=== PATIENT | male | born 1955 | race Caucasian/White ===

== ENCOUNTER 2019-01-22 08:48 | Day surgery (SDC) | payer OTHER ==
--- NOTE | 2019-01-22 08:02 | PCM.PREANE ---
Preanesthetic Assessment - Anesthesia/Transfusion/Family Hx Anesthesia History: Prior Anesthesia Without Reaction Family History of Anesthesia Reaction: No Transfusion History: No Prior Transfusion(s) Intubation History: Unknown - Review of Systems General: No Symptoms Pulmonary: No Symptoms (Quit smoking in 1999) Cardiovascular: No Symptoms Gastrointestinal: No Symptoms Neurological: No Symptoms, Tingling (bilateral hands: bulging cervical disks noted per patient.) Other: Reports: None, Neck Pain - Physical Assessment NPO Status Date: 01/21/19 NPO Status Time: 21:00 Pulse: 72 O2 Sat by Pulse Oximetry: 97 Respiratory Rate: 16 Blood Pressure: 158/89 Temperature: 36.6 C Height: 1.75 m Weight: 107.955 kg ASA Class: 2 Mental Status: Alert & Oriented x3 Airway Class: Mallampati = 2 Dentition: Reports: Normal Dentition, Caries Thyro-Mental Finger Breadths: 3 Mouth Opening Finger Breadths: 3 ROM/Head Extension: Full Lungs: Clear to Auscultation, Normal Respiratory Effort Cardiovascular: Regular Rate, Regular Rhythm, No Murmurs - Lab Values: MRSA: negative All labs reviewed and noted and within acceptable ranges to proceed with scheduled surgery. - Imaging/EKG Impressions: CXR: unremarkable EKG:SR rate= 72 - Allergies Allergies/Adverse Reactions: Allergies Allergy/AdvReac Type Severity Reaction Status Date / Time naproxen [From Aleve] Allergy Facial Verified 01/19/19 12:57 Swelling - Anesthesia Plan Pre-Op Medication Ordered: None - Acknowledgements Anesthesia Type Planned: General Anesthesia (left interscalene block under us guidance for post operative pain control requested by Dr. Yoo) Pt an Appropriate Candidate for the Planned Anesthesia: Yes Alternatives and Risks of Anesthesia Discussed w Pt/Guardian: Yes Pt/Guardian Understands and Agrees with Anesthesia Plan: Yes PreAnesthesia Questionnaire HEENT History: Reports: Impaired Vision, Other (See Below) Other HEENT History: wears contacts Cardiovascular History: Reports: High Cholesterol Respiratory History: Reports: None Genitourinary History: Reports: None [employer]PA[employer]ERS History: Reports: None Neurological History: Reports: None Psychiatric History: Reports: None Endocrine/Metabolic History: Reports: None Hematologic History: Reports: None Immunologic History: Reports: None Oncologic (Cancer) History: Reports: None Dermatologic History: Reports: None - Past Surgical History Head Surgeries/Procedures: Reports: None Cardiovascular Surgical History: Reports: None Respiratory Surgical History: Reports: None GI Surgical History: Reports: Colonoscopy, Hernia Repair/Other Female Surgical History: Reports: None Male Surgical History: Reports: None Endocrine Surgical History: Reports: None Neurological Surgical History: Reports: Other (See Below) Other Neurological Surgeries/Procedures: back surgery x4 Musculoskeletal Surgical History: Reports: Shoulder Surgery Oncologic Surgical History: Reports: None Dermatological Surgical History: Reports: None - SUBSTANCE USE Smoking Status *Q: Former Smoker Recreational Drug Use History: No - HOME MEDS Home Medications: Home Meds Acetaminophen [Tylenol] 650 mg PO Q4H PRN 01/19/19 [History] Aspirin [Halfprin] 81 mg PO DAILY 01/19/19 [History] atorvaSTATin Calcium [Atorvastatin Calcium] 20 mg PO DAILY 01/19/19 [History] Acetaminophen/HYDROcodone [[place] 325-5 MG] 1 - 2 tab PO Q6H PRN #40 tablet 01/22 [Rx] Cyclobenzaprine [Flexeril] 10 mg PO Q8H PRN #40 tab 01/22/19 [Rx] - CURRENT (IN HOUSE) MEDS Current Meds: Current Medications Epinephrine HCl (Adrenalin) 3 mg .XX ONETIME ONE Stop: 01/22/19 08:01 Lactated Ringer's (Ringers, Lactated) 1,000 mls @ 125 mls/hr IV ASDIRECTED ELIER Stop: 01/22/19 23:00 Lidocaine/Sodium Bicarbonate (Buffered Lidocaine 1% In Ns 8.4%) 0.25 ml IDERM ONETIME PRN PRN Reason: Prior to IV Start Stop: 01/22/19 18:00 Sodium Chloride (Saline Flush) 10 ml FLUSH ASDIRECTED PRN PRN Reason: Keep Vein Open Stop: 01/22/19 18:00 Discontinued Medications Cefazolin Sodium (Ancef) Confirm Administered Dose 2 gm .ROUTE .STK-MED ONE Stop: 01/22/19 06:01 Dexamethasone (Dexamethasone) Confirm Administered Dose 4 mg .ROUTE .STK-MED ONE Stop: 01/22/19 06:01 Epinephrine HCl (Adrenalin) Confirm Administered Dose 1 mg .ROUTE .STK-MED ONE Stop: 01/22/19 06:05 Fentanyl (Sublimaze) Confirm Administered Dose 250 mcg .ROUTE .STK-MED ONE Stop: 01/22/19 06:02 Lactated Ringer's (Ringers, Lactated) Confirm Administered Dose 1,000 mls @ as directed .ROUTE .STK-MED ONE Stop: 01/22/19 06:01 Ketorolac Tromethamine (Toradol) Confirm Administered Dose 30 mg .ROUTE .STK- MED ONE Stop: 01/22/19 06:01 Lidocaine HCl (Xylocaine-Mpf 1%) Confirm Administered Dose 6 ml .ROUTE .STK-MED ONE Stop: 01/22/19 06:01 Lidocaine HCl (Xylocaine-Mpf 1%) Confirm Administered Dose 4 ml .ROUTE .STK-MED ONE Stop: 01/22/19 06:04 Midazolam HCl (Versed 1 Mg/Ml) Confirm Administered Dose 2 mg .ROUTE .STChirpify-MED ONE Stop: 01/22/19 06:02 Ondansetron HCl (Zofran) Confirm Administered Dose 4 mg .ROUTE .STChirpify-MED ONE Stop: 01/22/19 06:01 Propofol (Diprivan 20 Ml) Confirm Administered Dose 200 mg .ROUTE .STK-MED ONE Stop: 01/22/19 06:02 Rocuronium [place] (Zemuron) Confirm Administered Dose 50 mg .ROUTE .STChirpify-MED ONE Stop: 01/22/19 06:01 Ropivacaine (Naropin 0.5%) Confirm Administered Dose 30 ml .ROUTE .STK-MED ONE Stop: 01/22/19 06:05
[~2019-01-22 08:48] MED LIST: Dexamethasone 4 MG/ML SDV ONE; EPINEPHrine 1 MG/ML 30 ML MDV ONE; EPINEPHrine 1 MG/ML SDV ONE; Ketorolac 30 MG/ML SDV ONE; Lactated Ringers 1,000 ML IV SCH; Lactated Ringers 1,000 ML ONE; Lidocaine 1% PF 2 ML SDV ONE; Lidocaine 1%/Sod Bicarbonate in NS 8.4% 1 ML Syringe IDERM PRN; Midazolam 1 MG/ML 2 ML SDV ONE; Ondansetron 4 MG/2 ML SDV ONE; Propofol 200 MG/20 ML SDV ONE; Rocuronium 50 MG/5 ML Vial ONE; Ropivacaine 0.5% 5 MG/ML 30 ML SDV ONE; Sodium Chloride 0.9% 10 ML Syringe FLUSH PRN; ceFAZolin 1 GM Vial ONE; fentaNYL 250 MCG/5 ML SDV ONE
--- NOTE | 2019-01-22 11:22 | PCM.SN ---
- Free Text/Narrative Note: Anesthesia Note: (Left Interscalene Block Note) Date: 01/22/2019 Time Out: 1000 Start: 1000 Stop: 1011 Surgical Procedure: Left Shoulder Video Arthroscopy with Rotator Cuff Repair Diagnosis Left Rotator Cuff Tendon Injury Current Procedure: Left interscalene block under US guidance for postoperative pain control requested by Dr. Yoo. Patient chart reviewed, risk/benefits discussed with patient, consent obtained. Patient positioned supine, monitors/alarms on, oxygen placed via nasal cannula at 2 LPM. IV sedation administered: Versed 2mg IV @ 1000, Fentanyl 50mcg IV @ 1000 Left shoulder prepped with two chloropreps. Sterile drapes placed with aseptic technique noted. Under US guidance, left subclavian artery visualized along with the left brachial plexus. Plexus followed up to C6 cricoid level, and area localized with 2mls of 1% lidocaine. 22gauge 2 inch stimiplex needle advanced under US with 0.6mV with stimulation of biceps noted. Good stimulation noted with decreased voltage and absent at 0.2mVs. 1ml of Normal Saline injected with loss of stimulation noted to confirm needle not placed intraneurally. Incremental dosing of 5mls with negative aspiration noted prior to each injection of 0.5% ropivacaine with 1:200,000 epinephrine. Total volume=30mls. Please refer to nurses noted for vital signs. Maricel Carreno CRNA
[2019-01-22] MEDS ORDERED: Propofol 200 MG/20 ML SDV ONE (12:49)
[2019-01-22] MEDS ORDERED: fentaNYL 100 MCG/2 ML SDV IVPUSH PRN (13:16)
[2019-01-22] MEDS ORDERED: HYDROmorphone 0.5 MG/0.5 ML Syringe IVPUSH PRN (13:16)
[2019-01-22] MEDS ORDERED: Ondansetron 4 MG/2 ML SDV IVPUSH PRN (13:16)
[2019-01-22] MEDS ORDERED: diphenhydrAMINE 50 MG/ML SDV IVPUSH PRN (13:16)
[2019-01-22] MEDS ORDERED: ePHEDrine 50 MG/ML SDV IVPUSH PRN (13:16)
[2019-01-22] MEDS ORDERED: Albuterol 0.083% 2.5 MG/3 ML Neb Soln NEB PRN (13:16)
[2019-01-22] MEDS ORDERED: Phenylephrine 1 MG in Sodium Chloride 0.9% 10 ML IV SCH (13:30)
[2019-01-22] MEDS ORDERED: Neostigmine Methylsulfate 1 MG/ML 5 ML Syringe ONE (13:38)
--- NOTE | 2019-01-22 14:37 | PCM.POSTAN ---
POST ANESTHESIA ASSESSMENT - MENTAL STATUS Mental Status: Alert - VITAL SIGNS Pulse Rate: 86 SaO2: 96 (2LPM nasal cannula) Resp Rate: 10 Blood Pressure: 157/87 Temperature: 36.8 C - RESPIRATORY Respiratory Status: Respiratory Rate WNL, Airway Patent, O2 Saturation Stable, Supplemental Oxygen - CARDIOVASCULAR CV Status: Pulse Rate WNL, Blood Pressure Stable - GASTROINTESTINAL GI Status: No Symptoms - POST OP HYDRATION Hydration Status: Adequate & Stable
--- NOTE | 2019-01-22 15:15 | PCM48HPAN ---
Post Anesthesia Note - EVALUATION WITHIN 48HRS OF ANESTHETIC Vital Signs in Normal Range: Yes Patient Participated in Evaluation: Yes Respiratory Function Stable: Yes Airway Patent: Yes Cardiovascular Function Stable: Yes Hydration Status Stable: Yes Pain Control Satisfactory: Yes Nausea and Vomiting Control Satisfactory: Yes Mental Status Recovered: Yes
--- NOTE | 2019-01-23 10:30 | PCM.OPNOTE ---
- General Post-Op/Procedure Note Date of Surgery/Procedure: 01/22/19 Operative Procedure(s): left shoulder video arthroscopy with small rotator cuff repair, extensive debridement, with subacromial decompression and biceps tenodesis Pre Op Diagnosis: left shoulder rotator cuff tear with impingement Post-Op Diagnosis: same biceps tendinopathy Anesthesia Technique: General ET Tube, Regional Block Primary Surgeon: Rui Yoo Anesthesia Provider: Maricel Carreno Industrial X Ray Operator: Ashley Tsang EBEnzo in mLs: 5 Complications: None Condition: Good Free Text/Narrative:: Intake & Output 01/22/19 01/23/19 01/23/19 22:59 06:59 14:59 Intake Total 220 Balance 220
--- NOTE | 2019-01-24 15:38 | OR ---
DATE OF OPERATION: 01/22/2019 SURGEON: Rui Yoo MD OPERATION PERFORMED: Left shoulder video arthroscopy with small rotator cuff repair, extensive debridement, subacromial decompression, and biceps tenodesis. PREOPERATIVE DIAGNOSIS: Left shoulder rotator cuff tear with impingement. POSTOPERATIVE DIAGNOSIS: Left shoulder rotator cuff tear with impingement with biceps tendinopathy. ANESTHESIA: General endotracheal intubation with regional interscalene block. ANESTHESIA PROVIDER: Maricel Carreno CRNA. LOG CUTTER: Ashley Tsang PA-C. ESTIMATED BLOOD LOSS: Less than 5 mL. COMPLICATIONS: None. CONDITION: Stable. DESCRIPTION OF PROCEDURE: The patient was identified in the preop holding area. Proper site was marked and identified by the surgeon. The patient was taken back to the operative theater, where after adequate anesthesia, the patient was placed in the lazy right lateral decubitus position. A wedge was placed posteriorly. All bony prominences well padded. The patient was secured to the table. At this time, left upper extremity was sterilely prepped and draped in the usual sterile fashion. OR time-out was performed. The patient received 2 g IV Ancef. 15 pounds of traction was applied to the left upper extremity. At this time, a standard posterior incision was made. The scope trocar was introduced to the glenohumeral joint. Anterior portal was then made with the outside-in technique. The patient's biceps tendon was noted to be significantly frayed with significant erythema. The patient was noted to have a slight tear anteriorly of the supraspinatus, but otherwise the rest of the rotator cuff was unremarkable. The patient had no signs of chondromalacia. At this time, a biceps tenodesis was performed with use of a spinal needle and FiberWire and then a tenotomy was performed on the biceps tendon for later tenodesis in the rotator interval. At this time, the superior labrum was then resected back to a stable rim. The rest of the labrum was intact. The subscapularis was noted to be intact. At this time, attention was turned to the subacromial space. At this time, subacromial space was noted to have a large amount of synovitis, and an extensive debridement was done of the subacromial space just to be able to see the rotator cuff. At this time, the very anterior portion of the tear was identified and a FiberTape was passed through the tear. Good bony bleeding bed was then created and one lateral row anchor was then created with the punch and a 4.75 mm Arthrex SwiveLock anchor was then placed laterally. Tension was applied across the FiberTape, and there was noted to be adequate watertight repair of the small anterior tear. At this time, after this was completed, again a debridement was done of the subacromial space as well as the CA ligament which was noted to be significantly frayed. An acromioplasty/subacromial decompression was then completed at this time back to a smooth border as the patient did have a type 2/3 acromion. At this time, excess saline was drained from the patient's shoulder, 3-0 nylon was used for closure of the portals. The patient was placed in a sterile soft dressing and a pillow sling and sent to PACU in stable condition. JUAN /[id number]
== END 2019-01-22 16:25 | disposition home or self-care (01) ==
LOC: JD.SDS 08:48
PROVIDERS: ATTEND Orthopaedic Surgery
DX: M75.112 Incomplete rotator cuff tear or rupture of left shoulder, not specified as traumatic (principal); M25.812 Other specified joint disorders, left shoulder; M65.812 Other synovitis and tenosynovitis, left shoulder; E78.00 Pure hypercholesterolemia, unspecified; Z87.891 Personal history of nicotine dependence; Z79.82 Long term (current) use of aspirin; Z79.899 Other long term (current) drug therapy
CPT/HCPCS: 29823; 29826; 29827; 29828; 64415; J0171; J0690; J1100; J1885; J2001; J2250; J2405; J2704; J2710; J2795; J3010; J7120; C1713

== ENCOUNTER 2020-05-31 21:31 | Emergency (ER) | payer OTHER ==
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
--- NOTE | 2020-06-01 06:31 | CT ---
Head CT Technique: Multiple axial sections through the brain were obtained. Intravenous contrast was not utilized. Comparison: No prior intracranial imaging. Findings: Soft tissue hematoma noted within the left posterior parietal scalp. Ventricles along with basal cisterns and sulci over the convexities are within normal limits for the patient's age. No abnormal parenchymal densities are seen. No evidence of intracranial hemorrhage. No midline shift or mass-effect is seen. Bone window settings were reviewed. Visualized mastoid sinuses and paranasal sinuses show nothing acute. No acute calvarial finding is seen. Impression: 1. Scalp hematoma. 2. No acute intracranial abnormality is appreciated. Diagnostic code #2 This report was dictated in MDT I agree with preliminary report from [facility], finalized on 05/31/20, 11:05 PM Central Daylight Time
== END 2020-05-31 22:35 | disposition home or self-care (01) ==
LOC: JD.ED 21:31
DX: S06.0X9A Concussion with loss of consciousness of unspecified duration, initial encounter (principal); S00.03XA Contusion of scalp, initial encounter; F10.120 Alcohol abuse with intoxication, uncomplicated; R41.3 Other amnesia; E78.00 Pure hypercholesterolemia, unspecified; Z79.82 Long term (current) use of aspirin; Z79.899 Other long term (current) drug therapy; Z88.8 Allergy status to other drugs, medicaments and biological substances; Z98.890 Other specified postprocedural states; V89.0XXA Person injured in unspecified motor-vehicle accident, nontraffic, initial encounter
CPT/HCPCS: 36415; 70450; 70450-26; 80307; 99284-25